=== PATIENT | male | born 1980 | race Caucasian/White ===

== ENCOUNTER → 2020-04-11 14:42 | Outpatient (BNVA) | payer MEDICAID, SELFPAY | PROVIDERS: Family Provider Nurse Practitioner; PCP Nurse Practitioner; Visit Provider Nurse Practitioner | DX: J02.0 Streptococcal pharyngitis (principal) | CPT/HCPCS: 87880 ==

== ENCOUNTER → 2020-05-05 12:00 | Outpatient (BNVA) | payer MEDICAID, SELFPAY | PROVIDERS: Family Provider Nurse Practitioner; PCP Family Medicine Adult Medicine; Visit Provider Family Medicine Adult Medicine | DX: K21.9 Gastro-esophageal reflux disease without esophagitis (principal) | CPT/HCPCS: 85007; 85027 ==

== ENCOUNTER 2022-01-05 19:30 | Emergency (ER) | payer BC, MEDICAID, SELFPAY ==
[2022-01-05] VITALS (8 sets, daily range): BP systolic 92–129; BP diastolic 59–85; PULSE 54–76; RESP 16–18; TEMP 37.4; O2SAT 92–97; BMI 24.9
--- NOTE | 2022-01-05 21:18 | XRR_ITS ---
PROCEDURE INFORMATION: Exam: XR Chest Exam date and time: 01/05/2022 9:26 PM Age: 41 years old Clinical indication: Fever and shortness of breath; Patient HX: C/O fever with SOB. TECHNIQUE: Imaging protocol: XR of the chest. Views: 1 view. COMPARISON: CT Chest/Abdomen/Pelvis w IV* 08/05/2018 3:39 AM FINDINGS: Lungs: See Pleural spaces finding. Pleural spaces: Few strandy opacities are seen in the left costophrenic recess likely representing atelectasis versus pleural or parenchymal scarring. Heart/Mediastinum: Unremarkable. No cardiomegaly. Bones/joints: Unremarkable. XR/XR chest 1V portable [id number] IMPRESSION: Strandy opacities in the left costophrenic recess likely represents parenchymal or pleural scarring versus atelectasis.
--- NOTE | 2022-01-05 21:19 | ECG_ITS ---
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 Measurements Intervals [place] Rate: 63 P: 14 NM: 169 QRS: 35 QRSD: 107 T: 16 QT: 440 QTc: 452 Interpretive Statements SINUS RHYTHM INDETERMINATE AXIS No previous ECG available for comparison Electronically Signed On 01-06-2022 0:07:57 CDT by Dany Vergara M.D. [id number]
--- NOTE | 2022-01-05 21:32 | ED_ITS ---
HPI - Fever General: Chief Complaint: Fever Stated Complaint: Low BP/O2 Time Seen by Provider: 01/05/22 21:13 Source: patient Mode of arrival: ambulatory Limitations: no limitations History of Present Illness: 41-year-old male states over the last week he is been having fever body ache generalized malaise. He states he also had a slight cough. He denies any chest pain or abdominal pain. He states he has been running high fevers up to 102. He states that he did have a bug bite to his left leg that is all began after a he is unsure if it was a tick. He denies any active headache. Patient states that he has had some low blood pressures at home his blood pressure here is normal. No known sick contacts he denies any IV drug use. Associated symptoms: Deny abdominal pain, chest pain, diarrhea, dysuria, headache(s), nausea or vomiting Review of Systems Const: Reports: fever(s), body aches, fatigue and malaise Eyes: Denies: blurry vision or eye discomfort ENMT: Denies: throat pain or dental pain Card: Denies: chest pain Resp: Reports: non-productive cough GI: Denies: abdominal pain, nausea, vomiting or diarrhea : Denies: dysuria Musc: Denies: neck pain or back pain Skin/Breast: Denies: rash Neuro: Denies: headache(s) Psych: Denies: depression Tan/Lymph: Denies: easy bruising All/Imm: Denies: urticaria PFSH ED PFSH: Medical History (Updated 01/05/22 @ 23:45 by Maria C Ashton MD) Antisocial personality disorder Bipolar 1 disorder Fibromyalgia GERD (gastroesophageal reflux disease) GI bleed due to NSAIDs Lumbar radiculopathy, chronic Migraine Family History Other Cancer Diabetes Heart disease Stroke Social History Smoking and tobacco status: current every day smoker cigarettes Packs smoked per day: 1 Second hand smoke exposure: Yes Alcohol intake: never History of recent travel: No Physical Exam Const: COMMON NORMALS: no acute distress, patient oriented x3 and healthy appearing HENMT: COMMON NORMALS: normocephalic and atraumatic HEAD & SCALP: normocephalic and atraumatic Eye: COMMON NORMALS: Equal, round and reactive pupils present and EOMs intact bilaterally PUPIL: Yes Equal, round and reactive pupils present Neck/C-Spine: COMMON NORMALS: full ROM and supple Chest: COMMONS NORMALS: normal inspection of the chest and normal palpation of entire chest wall Resp: COMMON NORMALS: normal respiratory effort, No retractions, No use of accessory muscles and clear to auscultation bilaterally AUSCULTATION: clear to auscultation bilaterally Cardio: COMMON NORMALS: regular rate, regular rhythm and No murmurs present (Cardio) RATE: regular rate RHYTHM: regular rhythm GI: COMMON NORMALS: Normal to inspection, nondistended, normoactive bowel sounds present, Soft to palpation, non-tender and no masses PALPATION: Yes Soft to palpation Extremity: COMMON NORMALS: normal to inspection and full ROM Neuro: COMMON NORMALS: patient oriented x3, moves all extremities and no focal motor deficits Psych: COMMON NORMALS: mental status grossly normal, Normal thought process present and cooperative THOUGHT PROCESS: Normal thought process present Skin: COMMON NORMALS: no rashes or lesions noted and no wounds GENERAL SKIN EXAM: no rashes or lesions noted Course Vital Signs: Vital signs: Vital Signs Temperature 99.4 F 01/05/22 19:58 Pulse Rate 60 01/05/22 23:01 Respiratory Rate 18 01/05/22 23:01 Blood Pressure 116/69 01/05/22 23:01 Pulse Oximetry 97 01/05/22 23:01 MDM - Fever Medical Decision Making Patient presents with a fever has been afebrile here with normal tension patient's blood work here is all normal with normal white count x-ray is normal he has no signs of meningitis we will place him on Keflex since he has had a ongoing fever he is to follow-up his PCP and return if worsening he understands agrees to plan. Lab Data : 01/05/22 21:40 01/05/22 22:50 Radiology Impressions Chest X-Ray 01/05/22 21:18 IMPRESSION: Strandy opacities in the left costophrenic recess likely represents parenchymal or pleural scarring versus atelectasis. Laboratory Results WBC 9.1 10^3/uL (4.0-10.0) 01/05/22 21:40 RBC 4.14 10^6/uL (4.1-5.3) 01/05/22 21:40 Hgb 12.2 g/dL (11.7-16.6) 01/05/22 21:40 Hct 37.1 % (42.0-52.0) L 01/05/22 21:40 MCV 89.6 fl (80-94) 01/05/22 21:40 MCH 29.5 pg (28.0-34.0) 01/05/22 21:40 MCHC 32.9 g/dL (30.0-36.0) 01/05/22 21:40 RDW 14.8 % (12.1-15.1) 01/05/22 21:40 Plt Count 331 10^3/cmm (130-400) 01/05/22 21:40 MPV 11.3 fL (7.4-10.4) H 01/05/22 21:40 Neut % (Auto) 49.4 % 01/05/22 21:40 Lymph % (Auto) 38.3 % 01/05/22 21:40 [place] % (Auto) 9.1 % 01/05/22 21:40 Eos % (Auto) 1.7 % 01/05/22 21:40 Baso % (Auto) 0.6 % 01/05/22 21:40 Neut # (Auto) 4.49 10^3/uL (1.8-7.7) 01/05/22 21:40 Lymph # (Auto) 3.5 10^3/uL (0.8-4.8) 01/05/22 21:40 [place] # (Auto) 0.8 10^3/uL (0.2-0.9) 01/05/22 21:40 Eos # (Auto) 0.2 10^3/uL (0.0-0.8) 01/05/22 21:40 Baso # (Auto) 0.1 10^3/uL (0.0-0.1) 01/05/22:40 Nucleated RBC % (auto) 0 % 01/05/22:40 Nucleated RBCs # 0.0 /100WBC 01/05/22 21:40 PT 12.50 SECONDS (12.1-14.9) 01/05/22 21:40 INR 0.91 (0.8-1.2) 05/12/22 21:40 Sodium 136 mmol/L (136-145) 01/05/22 22:50 Potassium 4.1 mmol/L (3.5-5.1) 01/05/22 22:50 Chloride 101 mmol/L (98-107) 01/05/22 22:50 Carbon Dioxide 27 mmol/L (22-29) 01/05/22 22:50 Anion Gap 12.1 (5-19) 01/05/22 22:50 BUN 14 mg/dL (6-20) 01/05/22 22:50 Creatinine 0.8 mg/dL (0.7-1.2) 01/05/22 22:50 GFR Calculation 105.5 mL/min (90-130) 01/05/22 22:50 Glucose 90 mg/dL (65-115) 01/05/22 22:50 Calculated Osmolality 282 mOsm/kg (285-295) L 01/05/22 22:50 Lactate 1.2 mmol/L (0.5-2.2) 01/05/22 21:40 Calcium 8.6 mg/dL (8.5-10.5) 01/05/22 22:50 Total Bilirubin 0.2 mg/dL (0.15-1.2) 01/05/22 22:50 AST 60 U/L (0-40) H 01/05/22 22:50 ALT 89 U/L (0-41) H 01/05/22 22:50 Alkaline Phosphatase 112 IU/L (40-130) 01/05/22 22:50 NT-Pro-B Natriuret Pep Cancelled 01/05/22 22:50 Total Protein 6.7 g/dL (6.6-8.7) 01/05/22 22:50 Albumin 3.3 g/dL (3.5-5.2) L 01/05/22 22:50 Globulin 3.4 g/dL (1.3-4.6) 01/05/22 22:50 Lipase 35 U/L (13-60) 01/05/22 22:50 TSH 1.56 uIU/mL (0.27-4.20) 01/05/22 22:50 Urine Color Yellow (Yellow) 01/05/22 22:04 Urine Appearance Clear (CLEAR) 01/05/22 22:04 Urine pH 6 (5-7) 01/05/22 22:04 Ur Specific [place] 1.020 (1.005-1.030) 01/05/22 22:04 Urine Protein Neg (Negative) 01/05/22 22:04 Urine Glucose (UA) Norm (Normal) 01/05/22 22:04 Urine Ketones Negative (Negative) 01/05/22 22:04 Urine Blood Neg (Negative) 01/05/22 22:04 Urine Nitrate Negative (Negative) 01/05/22 22:04 Urine Bilirubin Neg (Negative) 01/05/22 22:04 Urine Urobilinogen 1 mg/dL (Negative) H 01/05/22 22:04 Ur Leukocyte Esterase Negative (Negative) 01/05/22 22:04 CSF Lyme IgG Ab 45 kDa Cancelled 01/05/22 21:40 Lyme Ab (Western Blot) Cancelled 01/05/22 21:40 Lyme IgG 18 kDa Band Cancelled 01/05/22 21:40 Lyme IgG 23 kDa Band Cancelled 01/05/22 21:40 Lyme IgG 28 kDa Band Cancelled 01/05/22 21:40 Lyme IgG 30 kDa Band Cancelled 01/05/22 21:40 Lyme IgG 39 kDa Band Cancelled 01/05/22 21:40 Lyme IgG 41 kDa Band Cancelled 01/05/22 21:40 Lyme IgG 58 kDa Band Cancelled 01/05/22 21:40 Lyme IgG 66 kDa Band Cancelled 01/05/22 21:40 Lyme IgG 93 kDa Band Cancelled 01/05/22 21:40 Lyme IgM Ab (WB) Cancelled 01/05/22 21:40 Lyme Disease IgG Ab (IFA) Cancelled 01/05/22 21:40 Lyme IgG Ab (Immblot) Cancelled 01/05/22 21:40 Lyme IgM 23 kDa Band Cancelled 01/05/22 21:40 Lyme IgM 39 kDa Band Cancelled 01/05/22 21:40 Lyme IgM 41 kDa Band Cancelled 01/05/22 21:40 E. chaffeensis IgG Ab Cancelled 01/05/22 21:40 E. chaffeensis IgM Ab Cancelled 01/05/22 21:40 E. chaffeensis Interp Cancelled 01/05/22 21:40 E. chaffeensis Comment Cancelled 01/05/22 21:40 Influenza Type A Ag Negative (Negative) 01/05/22 21:40 Influenza Type B Ag Negative (Negative) 01/05/22 21:40 Rickettsia IgG Titer Cancelled 01/05/22 21:40 Rickettsia IgG Ab Cancelled 01/05/22 21:40 Rickettsia IgM Titer Cancelled 01/05/22 21:40 Rickettsia IgM Ab Cancelled 01/05/22 21:40 Group A Strep Rapid Negative (Negative) 01/05/22 21:40 EKG Data EKG 1: I personally reviewed and interpreted this EKG as follows: EKG interpretation date: 01/05/22 EKG interpretation time: 21:26 Interpretation: nsr hr [address] or t wave abnormalities qrs 107 qtc 447 EKG 2: I personally reviewed and interpreted this EKG as follows: EKG interpretation date: 01/05/22 EKG interpretation time: 23:06 Interpretation: sinus jeremy hr [address] or t wave abnormalities qrs 93 qtc 431 Discharge Plan Discharge Patient Disposition: Home Clinical Impression: Fever Condition: Stable Prescriptions: New cephalexin 500 mg capsule 500 mg PO TID 7 Days Qty: 21 0RF No Action ibuprofen 800 mg tablet 800 mg PO TID PRN (Reason: pain) 0RF hydrocodone-acetaminophen 7.5-325 mg tablet 1 tab PO Q8H PRN (Reason: Pain) 0RF alprazolam [Xanax] 0.5 mg tablet 0.5 mg PO DAILY 0RF Discharge Orders: Discharge ED (Routine); Ordered 01/05/22 Ordered By: Maria C Ashton Referrals: Taye Mcnair MD [Primary Care Provider] - Discharge Diet: Advance as tolerated Discharge Activity: Resume usual activity Patient Instructions: Fever in Adults (ED) Coding Level of Care Code ED Punch Box Tender for Chg Fwd Exam Comprehensive
[2022-01-05] MEDS: sodium chloride 0.9% 1,000 ML 999 ML IV ×2 (21:51→22:51)
[2022-01-05] MEDS: acetaminophen 500 mg Tablet 1000 MG PO (21:51)
[2022-01-05 22:06] LABS: Basophils # 0.1 10^3/uL (0.0-0.1); Basophils % 0.6 %; Eosinophils # 0.2 10^3/uL (0.0-0.8); Eosinophils % 1.7 %; Hematocrit 37.1 % (42.0-52.0); Hemoglobin 12.2 g/dL (11.7-16.6); Lymphocytes # 3.5 10^3/uL (0.8-4.8); Lymphocytes % 38.3 %; Mean Corpuscular HGB Conc 32.9 g/dL (30.0-36.0); Mean Corpuscular Hemoglobin 29.5 pg (28.0-34.0); Mean Corpuscular Volume 89.6 fl (80-94); Mean Platelet Volume 11.3 fL (7.4-10.4); Monocytes # 0.8 10^3/uL (0.2-0.9); Monocytes % 9.1 %; Neutrophils # 4.49 10^3/uL (1.8-7.7); Neutrophils % 49.4 %; Nucleated Red Blood Cells % 0 %; Platelet Count 331 10^3/cmm (130-400); Red Blood Count 4.14 10^6/uL (4.1-5.3); Red Cell Distribution Width 14.8 % (12.1-15.1); White Blood Count 9.1 10^3/uL (4.0-10.0)
[2022-01-05 22:14] LABS: Add Urine Microscopic? NO; Charge for UA Resulting for Rev
[2022-01-05 22:21] LABS: INR 0.91 (0.8-1.2)
[2022-01-05 22:27] LABS: Influenza A by IFA Negative (Negative); Influenza B by IFA Negative (Negative); Lactate (Lactic Acid level) 1.2 mmol/L (0.5-2.2); Rapid Strep A Test Negative (Negative)
[2022-01-05 22:27] LABS: Bilirubin Urine Neg (Negative); Blood Urine Neg (Negative); Glucose Urine UA Norm (Normal); Ketones Urine Negative (Negative); Leukocyte Esterase Urine Negative (Negative); Nitrate Urine Negative (Negative); Protein Urine Neg (Negative); Urine Appearance Clear (CLEAR); Urine Color Yellow (Yellow); Urobilinogen Urine 1 mg/dL (Negative); pH Urine 6 (5-7)
--- NOTE | 2022-01-05 23:19 | ECG_ITS ---
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 Measurements Intervals [place] Rate: 54 P: 10 [place]: 170 QRS: 53 QRSD: 93 T: 21 QT: 445 QTc: 423 Interpretive Statements SINUS BRADYCARDIA INDETERMINATE AXIS Compared to ECG 01/05/2022 21:26:39 Sinus rhythm no longer present Electronically Signed On 01-06-2022 20:45:18 CDT by Silver Burroughs M.D. [id number]
[2022-01-05 23:26] LABS: Alanine Aminotransferase 89 U/L (0-41); Albumin Level 3.3 g/dL (3.5-5.2); Alkaline Phosphatase 112 IU/L (40-130); Anion Gap 12.1 (5-19); Aspartate Amino Transferase 60 U/L (0-40); Blood Urea Nitrogen 14 mg/dL (6-20); Calcium 8.6 mg/dL (8.5-10.5); Carbon Dioxide 27 mmol/L (22-29); Chloride 101 mmol/L (98-107); Globulin 3.4 g/dL (1.3-4.6); Glomerular Filtration Rate 105.5 mL/min (90-130); Glucose 90 mg/dL (65-115); Lipase 35 U/L (13-60); Osmolality Calculated 282 mOsm/kg (285-295); Potassium 4.1 mmol/L (3.5-5.1); Sodium 136 mmol/L (136-145); Thyroid Stimulating Hormone 1.56 uIU/mL (0.27-4.20); Total Bilirubin 0.2 mg/dL (0.15-1.2); Total Protein 6.7 g/dL (6.6-8.7)
[2022-01-05] MEDS: cephALEXin 500 mg Capsule PO (23:55)
[2022-01-06 00:10] VITALS: BP 124/85; PULSE 58; RESP 18; O2SAT 97
[2022-01-09 15:38] LABS: Lyme AB Screen <0.90 index
[2022-01-12 21:38] LABS: E. Chaffeensis AB IGG <1:64; E. Chaffeensis AB IGM <1:20
[2022-01-14 21:28] LABS: RMSF IGG NOT DETECTED; RMSF IGM NOT DETECTED
== END 2022-01-06 00:10 | disposition home or self-care (01) ==
PROVIDERS: Emergency Provider Emergency Medicine; PCP Family Medicine Adult Medicine
DX: R50.9 Fever, unspecified (principal)
CPT/HCPCS: 71045; 80053; 81003; 83605; 83690; 84443; 85025; 85610; 86618; 86666; 86757; 87081; 87804; 87880; 93005; 96360; 96361; 99284; J7030

== ENCOUNTER → 2022-01-14 18:55 | Outpatient (BNVA) | payer BC, MEDICAID, SELFPAY | PROVIDERS: PCP Family Medicine Adult Medicine; Visit Provider Family Medicine Adult Medicine | DX: J02.0 Streptococcal pharyngitis (principal) | CPT/HCPCS: 86308 ==

== ENCOUNTER 2023-03-20 23:39 | Emergency (ER) | payer BC, MEDICAID, SELFPAY ==
--- NOTE | 2023-03-20 23:45 | ECG_ITS ---
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 Measurements Intervals [place] Rate: 85 P: 38 [place]: 164 QRS: 121 QRSD: 96 T: 45 QT: 329 QTc: 391 Interpretive Statements SINUS RHYTHM POSSIBLE RIGHT VENTRICULAR HYPERTROPHY [SOME/ALL OF: PROMINENT R IN V1, LATE TRANSITION, RAD, BERNARDA, SSS] Compared to ECG 01/05/2022 23:06:22 Atrial abnormality now present Sinus bradycardia no longer present Indeterminate axis no longer present Electronically Signed On 03-21-2023 20:22:56 CDT by Dany Vergara M.D. [id number]
--- NOTE | 2023-03-20 23:45 | XRR_ITS ---
PROCEDURE INFORMATION: Exam: XR Chest Exam date and time: 03/21/2023 12:00 AM Age: 42 years old Clinical indication: Pain; Chest pressure; Additional info: Chest pain TECHNIQUE: Imaging protocol: Radiologic exam of the chest. Views: 1 view. COMPARISON: CR XR chest 1V portable [id number] 01/05/2022 9:26 PM FINDINGS: Lungs: Unremarkable. No consolidation. Pleural spaces: Unremarkable. No pleural effusion. No pneumothorax. Heart/Mediastinum: Unremarkable. No cardiomegaly. Bones/joints: Unremarkable. XR/XR chest 1V portable [id number] IMPRESSION: No acute findings.
[2023-03-20 23:47] VITALS: BP 149/100; PULSE 89; RESP 16; TEMP 36.9; O2SAT 97; BMI 27.6
--- NOTE | 2023-03-20 23:55 | W.ED.CHESTPA ---
HPI - Chest Pain General: Chief Complaint: Chest Pain Stated Complaint: Chest Pains Time Seen by Provider: 03/20/23 23:51 Source: patient Mode of arrival: ambulatory Limitations: no limitations History of Present Illness: 42-year-old male states he been having chest pain over the last 3 days states been a pain over the left side of his chest some radiation to his back into the center of his chest he states it hurts with deep breath sometimes with palpation as well its been intermittent nature he rates his pain a 5 out of 10 currently he denies any nausea or vomiting denies any cough or fever [facility] ED PFSH: Medical History (Updated 03/21/23 @ 02:09 by Maria C Ashton MD) Antisocial personality disorder Bipolar 1 disorder Fibromyalgia GERD (gastroesophageal reflux disease) GI bleed due to NSAIDs Lumbar radiculopathy, chronic Migraine Family History Other Cancer Diabetes Heart disease Stroke Social History Smoking and tobacco status: current every day smoker cigarettes Packs smoked per day: 1 Second hand smoke exposure: Yes Alcohol intake: never Substance/Drug Use: never Physical Exam Const: COMMON NORMALS: no acute distress, patient oriented x3 and healthy appearing HENMT: COMMON NORMALS: normocephalic and atraumatic HEAD & SCALP: normocephalic and atraumatic Eye: COMMON NORMALS: Equal, round and reactive pupils present and EOMs intact bilaterally PUPIL: Yes Equal, round and reactive pupils present Neck/C-Spine: COMMON NORMALS: full ROM and supple Chest: COMMONS NORMALS: normal inspection of the chest and normal palpation of entire chest wall Resp: COMMON NORMALS: normal respiratory effort, No retractions, No use of accessory muscles and clear to auscultation bilaterally AUSCULTATION: clear to auscultation bilaterally Cardio: COMMON NORMALS: regular rate, regular rhythm and No murmurs present (Cardio) RATE: regular rate RHYTHM: regular rhythm GI: COMMON NORMALS: Normal to inspection, nondistended, normoactive bowel sounds present, Soft to palpation, non-tender and no masses PALPATION: Yes Soft to palpation Extremity: COMMON NORMALS: normal to inspection and full ROM Neuro: COMMON NORMALS: patient oriented x3, moves all extremities and no focal motor deficits Psych: COMMON NORMALS: mental status grossly normal, Normal thought process present and cooperative THOUGHT PROCESS: Normal thought process present Skin: COMMON NORMALS: no rashes or lesions noted and no wounds GENERAL SKIN EXAM: no rashes or lesions noted Course Vital Signs: Vital signs: Vital Signs Temperature 98.5 F 03/20/23 23:47 Pulse Rate 87 03/21/23 00:35 Respiratory Rate 26 H 03/21/23 00:35 Blood Pressure 142/96 03/21/23 00:35 Pulse Oximetry 90 03/21/23 00:35 Oxygen Delivery Me thod Room Air 03/21/23 00:35 MDM - Chest Pain Medical Decision Making Patient presents for chest pain is atypical in nature its been going on for days troponins here are negative CT angio was normal patient stable for discharge she is to follow-up with cardiology return if worsening he understands agrees to plan. Medical Records I reviewed the patient's medical records. Lab Data I reviewed the patient's lab results. 03/21/23 00:02 03/21/23 00:02 Radiology Impressions Chest X-Ray 03/20/23 23:45 IMPRESSION: No acute findings. Chest CTA 03/21/23 00:25 IMPRESSION: 1. No large central pulmonary embolus. Evaluation of segmental/subsegmental branches in the lower lungs is limited by motion artifact. No evidence of right heart strain. 2. No acute pathology identified in the chest. Laboratory Results WBC 11.2 10^3/uL (4.0-10.0) H 03/21/23 00:02 RBC 5.01 10^6/uL (4.1-5.3) 03/21/23 00:02 Hgb 14.6 g/dL (11.7-16.6) 03/21/23 00:02 Hct 44.6 % (42.0-52.0) 03/21/23 00:02 MCV 89.0 fl (80-94) 03/21/23 00:02 MCH 29.1 pg (28.0-34.0) 03/21/23 00:02 MCHC 32.7 g/dL (30.0-36.0) 03/21/23 00:02 RDW 13.3 % (12.1-15.1) 03/21/23 00:02 Plt Count 282 10^3/cmm (130-400) 03/21/23 00:02 MPV 10.6 fL (7.4-10.4) H 03/21/23 00:02 Neut % (Auto) 36.3 % 03/21/23 00:02 Lymph % (Auto) 55.4 % 03/21/23 00:02 [place] % (Auto) 5.3 % 03/21/23 00:02 Eos % (Auto) 2.3 % 03/21/23 00:02 Baso % (Auto) 0.5 % 03/21/23 00:02 Neut # (Auto) 4.07 10^3/uL (1.8-7.7) 03/21/23 00:02 Lymph # (Auto) 6.2 10^3/uL (0.8-4.8) H 03/21/23 00:02 [place] # (Auto) 0.6 10^3/uL (0.2-0.9) 03/21/23 00:02 Eos # (Auto) 0.3 10^3/uL (0.0-0.8) 03/21/23 00:02 Baso # (Auto) 0.1 10^3/uL (0.0-0.1) 03/21/23 00:02 Nucleated RBC % (auto) 0 % 03/21/23 00:02 Nucleated RBCs # 0.0 /100WBC 03/21/23 00:02 D-Dimer 1.47 ug/mIFEU (0-0.59) H 03/21/23 00:02 Sodium 136 mmol/L (136-145) 03/21/23 00:02 Potassium 4.7 mmol/L (3.5-5.1) 03/21/23 00:02 Chloride 98 mmol/L (98-107) 03/21/23 00:02 Carbon Dioxide 27 mmol/L (22-29) 03/21/23 00:02 Anion Gap 15.7 (5-19) 03/21/23 00:02 BUN 14 mg/dL (6-20) 03/21/23 00:02 Creatinine 1.1 mg/dL (0.7-1.2) 03/21/23 00:02 GFR Calculation 72.7 mL/min (90-130) L 03/21/23 00:02 Glucose 116 mg/dL (65-115) H 03/21/23 00:02 Calculated Osmolality 283 mOsm/kg (285-295) L 03/21/23 00:02 Calcium 9.8 mg/dL (8.5-10.5) 03/21/23 00:02 Total Bilirubin 0.2 mg/dL (0.15-1.2) 03/21/23 00:02 AST 36 U/L (0-40) 03/21/23 00:02 ALT 70 U/L (0-41) H 03/21/23 00:02 Alkaline Phosphatase 87 U/L (40-130) 03/21/23 00:02 Troponin T Baseline 6 ng/L (0-15) 03/21/23 00:02 Troponin T Hi Sens 6Hr 6.00 ng/L (0-15) 03/21/23 01:31 NT-Pro-B Natriuret Pep 36 pg/mL (0-125) 03/21/23 00:02 Total Protein 7.8 g/dL (6.6-8.7) 03/21/23 00:02 Albumin 4.6 g/dL (3.5-5.2) 03/21/23 00:02 Globulin 3.2 g/dL (1.3-4.6) 03/21/23 00:02 Lipase 37 U/L (13-60) 03/21/23 00:02 EKG Data EKG 1: I personally reviewed and interpreted this EKG as follows: EKG interpretation date: 03/20/23 EKG interpretation time: 23:45 Interpretation: nsr hr [address] or t wave abnormalities qrs 96 qtc 371 Discharge Plan Discharge Patient Disposition: Home Clinical Impression: Chest pain Condition: Stable Prescriptions: No Action alprazolam [Xanax] 0.5 mg tablet 0.5 mg PO DAILY PRN Discharge Orders: Discharge ED (Routine); Ordered 03/21/23 Ordered By: Maria C Ashton Referrals: Dany Vergara MD [Physician] - 1-3 days Discharge Diet: Advance as tolerated Discharge Activity: Resume usual activity Patient Instructions: Chest Pain (ED) Coding Level of Care Code ED Patient Registration Specialist for Chg Daryl
[2023-03-21] VITALS (10 sets, daily range): BP systolic 130–158; BP diastolic 93–107; PULSE 63–87; RESP 13–26; O2SAT 90–96
[2023-03-21 00:09] LABS: Basophils # 0.1 10^3/uL (0.0-0.1); Basophils % 0.5 %; Eosinophils # 0.3 10^3/uL (0.0-0.8); Eosinophils % 2.3 %; Hematocrit 44.6 % (42.0-52.0); Hemoglobin 14.6 g/dL (11.7-16.6); Lymphocytes # 6.2 10^3/uL (0.8-4.8); Lymphocytes % 55.4 %; Mean Corpuscular HGB Conc 32.7 g/dL (30.0-36.0); Mean Corpuscular Hemoglobin 29.1 pg (28.0-34.0); Mean Platelet Volume 10.6 fL (7.4-10.4); Monocytes # 0.6 10^3/uL (0.2-0.9); Monocytes % 5.3 %; Neutrophils # 4.07 10^3/uL (1.8-7.7); Neutrophils % 36.3 %; Nucleated Red Blood Cells % 0 %; Platelet Count 282 10^3/cmm (130-400); Red Blood Count 5.01 10^6/uL (4.1-5.3); Red Cell Distribution Width 13.3 % (12.1-15.1); White Blood Count 11.2 10^3/uL (4.0-10.0)
[2023-03-21] MEDS: aspirin 81 mg Chew Tablet 324 MG PO (00:10)
[2023-03-21 00:24] LABS: D Dimer 1.47 ug/mIFEU (0-0.59)
--- NOTE | 2023-03-21 00:25 | CTR_ITS ---
PROCEDURE INFORMATION: Exam: CTA Chest With Contrast Exam date and time: 03/21/2023 12:40 AM Age: 42 years old Clinical indication: Shortness of breath; Patient HX: Shob, elevated d-dimer; Additional info: SOB TECHNIQUE: Imaging protocol: Computed tomographic angiography of the chest with contrast. Exam focused on the arteries. 3D rendering (Not supervised by radiologist): MIP and/or 3D reconstructed images were created by the technologist. Radiation optimization: All CT scans at this facility use at least one of these dose optimization techniques: automated exposure control; mA and/or kV adjustment per patient size (includes targeted exams where dose is matched to clinical indication); or iterative reconstruction. Contrast material: OMNI 350; Contrast volume: 100 ml; Contrast route: INTRAVENOUS (IV); REPORTING DATA: Count of CT and Cardiac NM exams in prior 12 months: This patient has received 0 known CTs and 0 known cardiac nuclear medicine studies in the 12 months prior to the current study. COMPARISON: CR (CHEST, ) 03/21/2023 12:00 AM RADIATION DOSE METRICS: Total DLP (mGy-cm): 333.79 FINDINGS: Pulmonary arteries: No clear evidence of pulmonary embolus. Evaluation of segmental/subsegmental branches in the lower lungs is limited by motion artifact. Aorta: Unremarkable. No aortic aneurysm. No aortic dissection. Lungs: Streaky bilateral atelectasis noted. No consolidation. Pleural spaces: Unremarkable. No pneumothorax. No pleural effusion. Heart: Unremarkable. No cardiomegaly. No pericardial effusion. Lymph nodes: Unremarkable. No enlarged lymph nodes. Liver: The liver is diffusely decreased in density, compatible with hepatic steatosis. No discrete mass lesion identified. Bones/joints: Unremarkable. No acute fracture. Soft tissues: Unremarkable. CT/CT angio chest PE protcl [id number] IMPRESSION: 1. No large central pulmonary embolus. Evaluation of segmental/subsegmental branches in the lower lungs is limited by motion artifact. No evidence of right heart strain. 2. No acute pathology identified in the chest.
[2023-03-21] MEDS: nitroglycerin 0.4 mg sublingual Tablet SUBLINGUAL (00:31)
[2023-03-21 00:33] LABS: Troponin(5th) Baseline 6 ng/L (0-15)
[2023-03-21] MEDS: iohexol 350 mg/mL 500 mL Btl (per mL) IV (00:36)
[2023-03-21 00:41] LABS: Alanine Aminotransferase 70 U/L (0-41); Albumin Level 4.6 g/dL (3.5-5.2); Alkaline Phosphatase 87 U/L (40-130); Aspartate Amino Transferase 36 U/L (0-40); Blood Urea Nitrogen 14 mg/dL (6-20); Calcium 9.8 mg/dL (8.5-10.5); Carbon Dioxide 27 mmol/L (22-29); Chloride 98 mmol/L (98-107); Globulin 3.2 g/dL (1.3-4.6); Glomerular Filtration Rate 72.7 mL/min (90-130); Glucose 116 mg/dL (65-115); Lipase 37 U/L (13-60); NT Pro B Type Natriuretic Pept 36 pg/mL (0-125); Osmolality Calculated 283 mOsm/kg (285-295); Sodium 136 mmol/L (136-145); Total Bilirubin 0.2 mg/dL (0.15-1.2); Total Protein 7.8 g/dL (6.6-8.7)
[2023-03-21 00:43] LABS: Anion Gap 15.7 (5-19); Potassium 4.7 mmol/L (3.5-5.1)
[2023-03-21 02:14] LABS: Troponin 5 6HR Delta 0 ng/L (0-12)
--- NOTE | 2023-03-21 07:33 | DCPLANNER ---
Addendum entered by Sujatha Knapp 03/21/23 15:26: Patient has a follow up appointment scheduled for Monday, April 17, 2023 at 11:[address] Thompson at [facility]. Original Note: manager special events had message to schedule a follow up appointment for patient with cardiology. manager special events sent patients information to the front office staff at [facility]. Patients information will be printed and reviewed. Clinic will call patient with appointment information.
--- NOTE | 2023-03-21 08:49 | DCPLANNER ---
development system efficiency manager called patient due to no primary care physician - unable to speak with patient at this time.
== END 2023-03-21 02:33 | disposition home or self-care (01) ==
PROVIDERS: Nurse Practitioner Family; Emergency Provider Emergency Medicine
DX: R07.9 Chest pain, unspecified (principal); F17.210 Nicotine dependence, cigarettes, uncomplicated
CPT/HCPCS: 36415; 71045; 71275; 80053; 83690; 83880; 84484; 85025; 85378; 93005; 99285; Q9967

== ENCOUNTER 2023-03-22 01:34 | Emergency (ER) | payer BC, MEDICAID, SELFPAY ==
[2023-03-22 01:41] VITALS: BP 134/94; PULSE 93; RESP 18; TEMP 36.6; O2SAT 97; BMI 27.6
--- NOTE | 2023-03-22 01:44 | ED_ITS ---
HPI - Headache General: Chief Complaint: Headache Stated Complaint: high bp Time Seen by Provider: 03/22/23 01:40 History of Present Illness: 42-year-old gentleman presented the emergency department due to concern over high blood pressure as cause of headache. He has not seen physicians in the past. He presented to due to chest pain yesterday and was notified of high blood pressure. He thought it was high today. Anterior headache with no focal neurologic deficits. Denies infectious symptoms. No other specific changes in health, exacerbating, or alleviating factors identified. Onset (ago): hour(s) Onset description: gradually Review of Systems General: Reports: 10 or more systems reviewed and unremarkable except in HPI and below PFSH ED PFSH: Medical History (Updated 03/30/23 @ 00:02 by SHELLEY Martell) Antisocial personality disorder Bipolar 1 disorder Fibromyalgia GERD (gastroesophageal reflux disease) GI bleed due to NSAIDs Lumbar radiculopathy, chronic Migraine Family History Other Cancer Diabetes Heart disease Stroke Social History Smoking and tobacco status: current every day smoker cigarettes Packs smoked per day: 1 Second hand smoke exposure: Yes Alcohol intake: never Substance/Drug Use: never Physical Exam Const: COMMON NORMALS: alert GENERAL APPEARANCE: cooperative and well developed HENMT: COMMON NORMALS: normocephalic and atraumatic HEAD & SCALP: normocephalic and atraumatic THROAT: posterior oropharynx normal Eye: COMMON NORMALS: conjunctivae normal CONJUNCTIVA: Yes conjunctivae normal SCLERA: sclerae normal Neck/C-Spine: COMMON NORMALS: supple GENERAL: Yes trachea midline Resp: COMMON NORMALS: clear to auscultation bilaterally EFFORT & INSPECTION: Yes able to speak in complete sentences AUSCULTATION: clear to auscultation bilaterally Cardio: COMMON NORMALS: regular rate and regular rhythm RATE: regular rate RHYTHM: regular rhythm GI: COMMON NORMALS: Soft to palpation PALPATION: Yes Soft to palpation and No Tenderness to palpation present (GI) Extremity: GENERAL: Yes normal exam except as noted and No edema Neuro: COMMON NORMALS: moves all extremities SENSORIUM/ORIENTATION: Yes alert and No Orientation impaired Psych: COMMON NORMALS: mental status grossly normal and Normal thought process present THOUGHT PROCESS: Normal thought process present Course Vital Signs: Vital signs: Vital Signs Temperature 98 F 03/22/23 01:41 Pulse Rate 94 03/22/23 02:01 Respiratory Rate 16 03/22/23 02:01 Blood Pressure 134/94 03/22/23 01:41 Pulse Oximetry 94 03/22/23 02:01 MDM - Headache Medical Decision Making 42-year-old gentleman presenting with headache and concern over high blood pressure. Exam as above. No focal deficits. Nontoxic. No significant hematologic or metabolic abnormalities. ALT mildly elevated. D- dimer elevated. Chest CTA negative for acute pathology. Blood pressure improved during ED course. Headache improved. The results of ED evaluation were discussed with the patient including prescriptions and/or symptomatic cares (if applicable) including appropriate and responsible use, followup plan, and return precautions. The patient verbalized understanding and felt safe for discharge. Medical Records I reviewed the patient's medical records. Lab Data I reviewed the patient's lab results. Discharge Plan Discharge Patient Disposition: Home Clinical Impression: Headache Condition: Stable Prescriptions: No Action alprazolam [Xanax] 0.5 mg tablet 0.5 mg PO DAILY PRN Discharge Orders: Discharge ED (Routine); Ordered 03/22/23 Ordered By: Brodie Fernandez Discharge Diet: Usual diet Discharge Activity: Increase activity as tolerated Patient Instructions: Acute Headache (ED) Activity Restrictions/Additional Instructions: Thank you for visiting the emergency department. You were seen about for headache. The exact cause of your symptoms is unclear. As discussed your blood pressure is not likely high enough to be responsible for your symptoms. You do require follow-up with a primary care provider. Return for uncontrolled symptoms, any strokelike symptoms, or anything else that you are concerned about and feel needs emergency department evaluation. Coding Level of Care Code ED Costume Technician for Robb Brito
[2023-03-22 02:01] VITALS: PULSE 94; RESP 16; O2SAT 94
== END 2023-03-22 02:02 | disposition home or self-care (01) ==
PROVIDERS: Emergency Provider Emergency Medicine
DX: R51.9 Headache, unspecified (principal)
CPT/HCPCS: 99281

== ENCOUNTER 2023-04-05 05:16 | Emergency (ER) | payer BC, MEDICAID, SELFPAY ==
--- NOTE | 2023-04-05 05:17 | XRR_ITS ---
PROCEDURE INFORMATION: Exam: XR Chest Exam date and time: 04/05/2023 5:44 AM Age: 42 years old Clinical indication: Pain; Chest pressure; Additional info: Cp TECHNIQUE: Imaging protocol: Radiologic exam of the chest. Views: 1 view. COMPARISON: CR (CHEST, ) 03/21/2023 12:00 AM FINDINGS: Lungs: Unremarkable. No consolidation. Pleural spaces: Unremarkable. No pleural effusion. No pneumothorax. Heart/Mediastinum: Unremarkable. No cardiomegaly. Bones/joints: Unremarkable. XR/XR chest 1V portable [id number] IMPRESSION: No acute findings.
[2023-04-05 05:20] VITALS: BP 172/118; PULSE 92; RESP 18; TEMP 36.7; O2SAT 98; BMI 28.1
--- NOTE | 2023-04-05 05:24 | ECG_ITS ---
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 Measurements Intervals [place] Rate: 87 P: 36 [place]: 155 QRS: 153 QRSD: 91 T: 44 QT: 319 QTc: 386 Interpretive Statements SINUS RHYTHM INDETERMINATE AXIS Compared to ECG 03/20/2023 23:45:40 Indeterminate axis now present Atrial abnormality no longer present Electronically Signed On 04-06-2023 9:27:31 CDT by Silver Burroughs M.D. [id number] f
--- NOTE | 2023-04-05 05:26 | W.ED.CHESTPA ---
Documented by User: Maria C Ashton MD 04/05/23 12:45 HPI - Chest Pain General: Chief Complaint: Chest Pain Stated Complaint: Chest Hurts Time Seen by Provider: 04/05/23 05:19 Source: patient Mode of arrival: ambulatory Limitations: no limitations History of Present Illness: 42-year-old male states been having chest pain along with epigastric abdominal pain over the last 2 weeks. States pains been sharp in nature its much worse when he lays down. He denies any vomiting or diarrhea. He denies any shortness of breath. He denies any radiation of his pain. He states the pain is currently a 6 out of 10 [facility] ED PFSH: Medical History (Updated 04/05/23 @ 05:30 by Maria C Ashton MD) Antisocial personality disorder Bipolar 1 disorder Fibromyalgia GERD (gastroesophageal reflux disease) GI bleed due to NSAIDs Lumbar radiculopathy, chronic Migraine Family History Other Cancer Diabetes Heart disease Stroke Social History Smoking and tobacco status: current every day smoker cigarettes Packs smoked per day: 1 Second hand smoke exposure: Yes Alcohol intake: never Substance/Drug Use: never Physical Exam Const: COMMON NORMALS: no acute distress, patient oriented x3 and healthy appearing HENMT: COMMON NORMALS: normocephalic and atraumatic HEAD & SCALP: normocephalic and atraumatic Eye: COMMON NORMALS: conjunctivae normal CONJUNCTIVA: Yes conjunctivae normal Neck/C-Spine: COMMON NORMALS: full ROM and supple Chest: COMMONS NORMALS: normal inspection of the chest Resp: COMMON NORMALS: normal respiratory effort, No retractions, No use of accessory muscles and clear to auscultation bilaterally AUSCULTATION: clear to auscultation bilaterally Cardio: COMMON NORMALS: regular rate, regular rhythm and No murmurs present (Cardio) RATE: regular rate RHYTHM: regular rhythm GI: COMMON NORMALS: Normal to inspection, nondistended, normoactive bowel sounds present, Soft to palpation and no masses PALPATION: Yes Soft to palpation OTHER: epigastric tenderness Extremity: COMMON NORMALS: normal to inspection and full ROM Neuro: COMMON NORMALS: patient oriented x3, moves all extremities and no focal motor deficits Psych: COMMON NORMALS: mental status grossly normal, Normal thought process present and cooperative THOUGHT PROCESS: Normal thought process present Skin: COMMON NORMALS: no rashes or lesions noted and no wounds GENERAL SKIN EXAM: no rashes or lesions noted Course Vital Signs: Vital signs: Vital Signs Temperature 98.1 F 04/05/23 05:20 Pulse Rate 68 04/05/23 07:13 Respiratory Rate 20 H 04/05/23 07:13 Blood Pressure 124/88 04/05/23 07:13 Pulse Oximetry 94 04/05/23 07:13 Oxygen Delivery Me thod Room Air 04/05/23 05:20 MDM - Chest Pain Medical Decision Making Patient presents here with epigastric abdominal pain along with chest pain patient's labs and imaging are pending care turned over to Dr. Felipe at this time Medical Records I reviewed the patient's medical records. Lab Data I reviewed the patient's lab results. 04/05/23 05:34 04/05/23 05:34 Radiology Impressions Chest X-Ray 04/05/23 05:17 IMPRESSION: No acute findings. Gallbladder Ultrasound 04/05/23 05:28 IMPRESSION: 1. Negative for acute pathology. 2. Liver steatosis with focal fatty sparing near the gallbladder suspected. Laboratory Results WBC 12.1 10^3/uL (4.0-10.0) H 04/05/23 05:34 RBC 5.16 10^6/uL (4.1-5.3) 04/05/23 05:34 Hgb 15.5 g/dL (11.7-16.6) 04/05/23 05:34 Hct 44.8 % (42.0-52.0) 04/05/23 05:34 MCV 86.8 fl (80-94) 04/05/23 05:34 MCH 30.0 pg (28.0-34.0) 04/05/23 05:34 MCHC 34.6 g/dL (30.0-36.0) 04/05/23 05:34 RDW 13.2 % (12.1-15.1) 04/05/23 05:34 Plt Count 310 10^3/cmm (130-400) 04/05/23 05:34 MPV 10.4 fL (7.4-10.4) 04/05/23 05:34 Neut % (Auto) 36.7 % 04/05/23 05:34 Lymph % (Auto) 54.2 % 04/05/23 05:34 [place] % (Auto) 6.0 % 04/05/23 05:34 Eos % (Auto) 2.5 % 04/05/23 05:34 Baso % (Auto) 0.4 % 04/05/23 05:34 Neut # (Auto) 4.45 10^3/uL (1.8-7.7) 04/05/23 05:34 Lymph # (Auto) 6.6 10^3/uL (0.8-4.8) H 04/05/23 05:34 [place] # (Auto) 0.7 10^3/uL (0.2-0.9) 04/05/23 05:34 Eos # (Auto) 0.3 10^3/uL (0.0-0.8) 04/05/23 05:34 Baso # (Auto) 0.1 10^3/uL (0.0-0.1) 04/05/23 05:34 Nucleated RBC % (auto) 0 % 04/05/23 05:34 Nucleated RBCs # 0.0 /100WBC 04/05/23 05:34 Sodium 139 mmol/L (136-145) 04/05/23 05:34 Potassium 4.1 mmol/L (3.5-5.1) 04/05/23 05:34 Chloride 102 mmol/L (98-107) 04/05/23 05:34 Carbon Dioxide 26 mmol/L (22-29) 04/05/23 05:34 Anion Gap 15.1 (5-19) 04/05/23 05:34 BUN 16 mg/dL (6-20) 04/05/23 05:34 Creatinine 1.1 mg/dL (0.7-1.2) 04/05/23 05:34 GFR Calculation 72.7 mL/min (90-130) L 04/05/23 05:34 Glucose 117 mg/dL (65-115) H 04/05/23 05:34 Calculated Osmolality 290 mOsm/kg (285-295) 04/05/23 05:34 Calcium 9.1 mg/dL (8.5-10.5) 04/05/23 05:34 Total Bilirubin 0.2 mg/dL (0.15-1.2) 04/05/23 05:34 AST 37 U/L (0-40) 04/05/23 05:34 ALT 69 U/L (0-41) H 04/05/23 05:34 Alkaline Phosphatase 80 U/L (40-130) 04/05/23 05:34 Troponin T Baseline 6 ng/L (0-15) 04/05/23 05:34 Troponin T 120 Minute 6.00 ng/L (0-15) 04/05/23 07:50 Delta Troponin T 0 ABS# (0-10) 04/05/23 07:50 Total Protein 7.8 g/dL (6.6-8.7) 04/05/23 05:34 Albumin 4.2 g/dL (3.5-5.2) 04/05/23 05:34 Globulin 3.6 g/dL (1.3-4.6) 04/05/23 05:34 Lipase 36 U/L (13-60) 04/05/23 05:34 EKG Data EKG 1: I personally reviewed and interpreted this EKG as follows: EKG interpretation date: 04/05/23 EKG interpretation time: 05:24 Interpretation: nsr hr [address] or t wave abnormalities qrs 91 qtc 364 Discharge Plan Discharge Patient Disposition: Home Clinical Impression: Chest pain, Abdominal pain Condition: Stable Prescriptions: New Protonix 40 mg tablet,delayed release (DR/EC) 40 mg PO DAILY Qty: 60 0RF No Action alprazolam [Xanax] 0.5 mg tablet 0.5 mg PO DAILY PRN Discharge Orders: Discharge ED (Routine); Ordered 04/05/23 Ordered By: Brodie Fernandez Discharge Diet: Advance as tolerated Discharge Activity: Resume usual activity Patient Instructions: Chest Pain (ED), Abdominal Pain (ED) Sign Out Sign Out Data: Patient Sign Out occurred on 04/05/23 at 06:04. Patient's care was discussed, and care was transferred from to Brodie Fernandez MD. Coding Level of Care Code ED Cash Applications Specialist for Chg Fwd Documented by User: Brodie Fernandez MD 04/10/23 17:10 HPI - Chest Pain General: Chief Complaint: Chest Pain Stated Complaint: Chest Hurts Time Seen by Provider: 04/05/23 05:19 [facility] ED PFSH: Medical History (Updated 04/05/23 @ 05:30 by Maria C Ashton MD) Antisocial personality disorder Bipolar 1 disorder Fibromyalgia GERD (gastroesophageal reflux disease) GI bleed due to NSAIDs Lumbar radiculopathy, chronic Migraine Family History Other Cancer Diabetes Heart disease Stroke Social History Smoking and tobacco status: current every day smoker cigarettes Packs smoked per day: 1 Second hand smoke exposure: Yes Alcohol intake: never Substance/Drug Use: never Course Vital Signs: Vital signs: Vital Signs Temperature 98.1 F 04/05/23 05:20 Pulse Rate 68 04/05/23 07:13 Respiratory Rate 20 H 04/05/23 07:13 Blood Pressure 124/88 04/05/23 07:13 Pulse Oximetry 94 04/05/23 07:13 Oxygen Delivery Me thod Room Air 04/05/23 05:20 MDM - Chest Pain Medical Decision Making Patient presents here with epigastric abdominal pain along with chest pain patient's labs and imaging are pending care turned over to Dr. Felipe at this time Patient care handoff received from Dr. Ashton completion of ED evaluation. Laboratory studies and imaging reviewed. Negative range 2-hour delta troponin. No acute pathology requiring hospitalization on imaging. Low risk by heart score. The results of ED evaluation were discussed with the patient including prescriptions and/or symptomatic cares (if applicable) including appropriate and responsible use, followup plan, and return precautions. The patient verbalized understanding and felt safe for discharge. Lab Data 04/05/23 05:34 04/05/23 05:34 Radiology Impressions Chest X-Ray 04/05/23 05:17 IMPRESSION: No acute findings. Gallbladder Ultrasound 04/05/23 05:28 IMPRESSION: 1. Negative for acute pathology. 2. Liver steatosis with focal fatty sparing near the gallbladder suspected. Laboratory Results WBC 12.1 10^3/uL (4.0-10.0) H 04/05/23 05:34 RBC 5.16 10^6/uL (4.1-5.3) 04/05/23 05:34 Hgb 15.5 g/dL (11.7-16.6) 04/05/23 05:34 Hct 44.8 % (42.0-52.0) 04/05/23 05:34 MCV 86.8 fl (80-94) 04/05/23 05:34 MCH 30.0 pg (28.0-34.0) 04/05/23 05:34 MCHC 34.6 g/dL (30.0-36.0) 04/05/23 05:34 RDW 13.2 % (12.1-15.1) 04/05/23 05:34 Plt Count 310 10^3/cmm (130-400) 04/05/23 05:34 MPV 10.4 fL (7.4-10.4) 04/05/23 05:34 Neut % (Auto) 36.7 % 04/05/23 05:34 Lymph % (Auto) 54.2 % 04/05/23 05:34 [place] % (Auto) 6.0 % 04/05/23 05:34 Eos % (Auto) 2.5 % 04/05/23 05:34 Baso % (Auto) 0.4 % 04/05/23 05:34 Neut # (Auto) 4.45 10^3/uL (1.8-7.7) 04/05/23 05:34 Lymph # (Auto) 6.6 10^3/uL (0.8-4.8) H 04/05/23 05:34 [place] # (Auto) 0.7 10^3/uL (0.2-0.9) 04/05/23 05:34 Eos # (Auto) 0.3 10^3/uL (0.0-0.8) 04/05/23 05:34 Baso # (Auto) 0.1 10^3/uL (0.0-0.1) 04/05/23 05:34 Nucleated RBC % (auto) 0 % 04/05/23 05:34 Nucleated RBCs # 0.0 /100WBC 04/05/23 05:34 Sodium 139 mmol/L (136-145) 04/05/23 05:34 Potassium 4.1 mmol/L (3.5-5.1) 04/05/23 05:34 Chloride 102 mmol/L (98-107) 04/05/23 05:34 Carbon Dioxide 26 mmol/L (22-29) 04/05/23 05:34 Anion Gap 15.1 (5-19) 04/05/23 05:34 BUN 16 mg/dL (6-20) 04/05/23 05:34 Creatinine 1.1 mg/dL (0.7-1.2) 04/05/23 05:34 GFR Calculation 72.7 mL/min (90-130) L 04/05/23 05:34 Glucose 117 mg/dL (65-115) H 04/05/23 05:34 Calculated Osmolality 290 mOsm/kg (285-295) 04/05/23 05:34 Calcium 9.1 mg/dL (8.5-10.5) 04/05/23 05:34 Total Bilirubin 0.2 mg/dL (0.15-1.2) 04/05/23 05:34 AST 37 U/L (0-40) 04/05/23 05:34 ALT 69 U/L (0-41) H 04/05/23 05:34 Alkaline Phosphatase 80 U/L (40-130) 04/05/23 05:34 Troponin T Baseline 6 ng/L (0-15) 04/05/23 05:34 Troponin T 120 Minute 6.00 ng/L (0-15) 04/05/23 07:50 Delta Troponin T 0 ABS# (0-10) 04/05/23 07:50 Total Protein 7.8 g/dL (6.6-8.7) 04/05/23 05:34 Albumin 4.2 g/dL (3.5-5.2) 04/05/23 05:34 Globulin 3.6 g/dL (1.3-4.6) 04/05/23 05:34 Lipase 36 U/L (13-60) 04/05/23 05:34 Discharge Plan Discharge Patient Disposition: Home Clinical Impression: Chest pain, Abdominal pain Condition: Stable Prescriptions: New Protonix 40 mg tablet,delayed release (DR/EC) 40 mg PO DAILY Qty: 60 0RF No Action alprazolam [Xanax] 0.5 mg tablet 0.5 mg PO DAILY PRN Discharge Orders: Discharge ED (Routine); Ordered 04/05/23 Ordered By: Brodie Fernandez Discharge Diet: Advance as tolerated Discharge Activity: Resume usual activity Patient Instructions: Chest Pain (ED), Abdominal Pain (ED) Sign Out Sign Out Data: Patient Sign Out occurred on 04/05/23 at 06:04. Patient's care was discussed, and care was transferred from to Brodie Fernandez MD. Coding Level of Care Code ED Cash Applications Specialist for Robb Brito
--- NOTE | 2023-04-05 05:28 | USR_ITS ---
PROCEDURE INFORMATION: Exam: US Abdomen, Limited; Right Upper Quadrant Exam date and time: 04/05/2023 5:51 AM Age: 42 years old Clinical indication: Abdominal pain; Acute; Additional info: Abd pain TECHNIQUE: Imaging protocol: Real time ultrasound of the abdomen with image documentation. Limited exam focused on the right upper quadrant. COMPARISON: CT chest abdpel w/*[id number] 08/05/2018 3:39 AM FINDINGS: Liver: Prominent increased echogenicity of the liver parenchyma. Small hypoechoic liver parenchyma region near the gallbladder fossa. Gallbladder: Normal. No gallstones. There is no gallbladder wall thickening. Biliary ducts: Normal. No stones. No dilation. Pancreas: Pancreas relatively obscured. Right kidney: Normal. No mass. No hydronephrosis. Portal venous: Main portal vein patent with normal flow direction. Intraperitoneal space: Negative for intraperitoneal fluid collection. US/US gall bladder [id number] IMPRESSION: 1. Negative for acute pathology. 2. Liver steatosis with focal fatty sparing near the gallbladder suspected.
[2023-04-05] MEDS: aspirin 81 mg Chew Tablet 324 MG PO (05:29)
[2023-04-05] MEDS: aluminum-mag hydrox-simethicon 30 ML, sucralfate oral liq 1 GM PO (05:29)
[2023-04-05 05:42] LABS: Basophils # 0.1 10^3/uL (0.0-0.1); Basophils % 0.4 %; Eosinophils # 0.3 10^3/uL (0.0-0.8); Eosinophils % 2.5 %; Hematocrit 44.8 % (42.0-52.0); Hemoglobin 15.5 g/dL (11.7-16.6); Lymphocytes # 6.6 10^3/uL (0.8-4.8); Lymphocytes % 54.2 %; Mean Corpuscular HGB Conc 34.6 g/dL (30.0-36.0); Mean Corpuscular Volume 86.8 fl (80-94); Mean Platelet Volume 10.4 fL (7.4-10.4); Monocytes # 0.7 10^3/uL (0.2-0.9); Neutrophils # 4.45 10^3/uL (1.8-7.7); Neutrophils % 36.7 %; Nucleated Red Blood Cells % 0 %; Platelet Count 310 10^3/cmm (130-400); Red Blood Count 5.16 10^6/uL (4.1-5.3); Red Cell Distribution Width 13.2 % (12.1-15.1); White Blood Count 12.1 10^3/uL (4.0-10.0)
[2023-04-05 05:45] VITALS: BP 172/118; PULSE 85; RESP 12; O2SAT 97
[2023-04-05 06:07] LABS: Troponin(5th) Baseline 6 ng/L (0-15)
[2023-04-05 06:08] LABS: Alanine Aminotransferase 69 U/L (0-41); Albumin Level 4.2 g/dL (3.5-5.2); Alkaline Phosphatase 80 U/L (40-130); Anion Gap 15.1 (5-19); Aspartate Amino Transferase 37 U/L (0-40); Blood Urea Nitrogen 16 mg/dL (6-20); Calcium 9.1 mg/dL (8.5-10.5); Carbon Dioxide 26 mmol/L (22-29); Chloride 102 mmol/L (98-107); Globulin 3.6 g/dL (1.3-4.6); Glomerular Filtration Rate 72.7 mL/min (90-130); Glucose 117 mg/dL (65-115); Lipase 36 U/L (13-60); Osmolality Calculated 290 mOsm/kg (285-295); Potassium 4.1 mmol/L (3.5-5.1); Sodium 139 mmol/L (136-145); Total Bilirubin 0.2 mg/dL (0.15-1.2); Total Protein 7.8 g/dL (6.6-8.7)
[2023-04-05 06:52] VITALS: BP 149/111; PULSE 66; RESP 20; O2SAT 94
[2023-04-05 07:13] VITALS: BP 124/88; PULSE 68; RESP 20; O2SAT 94
--- NOTE | 2023-04-05 07:18 | ECG_ITS ---
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 Measurements Intervals [place] Rate: 70 P: 9 SD: 154 QRS: 204 QRSD: 110 T: 50 QT: 342 QTc: 369 Interpretive Statements SINUS RHYTHM INDETERMINATE AXIS LEFT POSTERIOR FASCICULAR BLOCK [QRS AXIS > 109, INFERIOR Q] MODERATE T-WAVE ABNORMALITY, CONSIDER ANTEROLATERAL ISCHEMIA [-0.1+ mV T-WAVE IN V3-V6] Compared to ECG 04/05/2023 05:24:08 Left posterior fascicular block now present T-wave abnormality now present Possible ischemia now present Electronically Signed On 04-06-2023 9:31:25 CDT by Silver Burroughs M.D. [id number]
[2023-04-05] MEDS: pantoprazole 40 mg SDV 80 MG IVP (09:33)
[2023-04-05 09:56] LABS: Troponin 5 2HR Delta 0 ABS# (0-10)
--- NOTE | 2023-04-06 13:01 | DCPLANNER ---
Addendum entered by Sujatha Knapp 04/23/23 16:05: Patient did attend appointment scheduled with heart care Original Note: seniour insight manager called patient due to no primary care physician - patient stated that he is established with someone.
== END 2023-04-05 09:50 | disposition home or self-care (01) ==
PROVIDERS: Emergency Medicine; Emergency Provider Emergency Medicine
DX: R07.9 Chest pain, unspecified (principal); R10.9 Unspecified abdominal pain; F17.210 Nicotine dependence, cigarettes, uncomplicated
CPT/HCPCS: 36415; 71045; 76705; 80053; 83690; 84484; 85025; 93005; 96374; 99285; C9113

== ENCOUNTER → 2023-10-09 10:30 | Outpatient (BNVA) | payer BC, MEDICAID, SELFPAY | PROVIDERS: PCP Nurse Practitioner Family; Visit Provider Family Medicine Adult Medicine | DX: I10 Essential (primary) hypertension (principal); N18.2 Chronic kidney disease, stage 2 (mild); K92.2 Gastrointestinal hemorrhage, unspecified; T39.395A Adverse effect of other nonsteroidal anti-inflammatory drugs [NSAID], initial encounter; F41.1 Generalized anxiety disorder; F41.0 Panic disorder [episodic paroxysmal anxiety]; K21.9 Gastro-esophageal reflux disease without esophagitis; M54.16 Radiculopathy, lumbar region | CPT/HCPCS: 80053; 84443; 85025 ==

== ENCOUNTER → 2023-11-06 15:55 | Outpatient (BNVA) | payer BC, MEDICAID, SELFPAY | PROVIDERS: PCP Family Medicine Adult Medicine; Visit Provider Family Medicine Adult Medicine | DX: M25.541 Pain in joints of right hand (principal) | CPT/HCPCS: 73130 ==